=== PATIENT | female | born 1960 | race Caucasian/White ===

== ENCOUNTER 2019-08-24 21:31 | Emergency (ER) | payer MEDICARE, MEDICAID ==
[~2019-08-24] VITALS: Ht 162.6 cm; Wt 69.4 kg
[2019-08-24] MEDS ORDERED: DEXTROSE 50% 50 ML (IMS) SYR ONE (21:43)
--- NOTE | 2019-08-24 21:57 | ED General ---
General Chief Complaint: Respiratory Problems Stated Complaint: GLUCOSE PROBLEM Nursing Triage Note: PT TO ROOM FS05 WITH C/O SOB AND HYPOGLYCEMIA VIA [facility]. PT IS MR AND IS NOT ABLE TO ANSWER QUESTIONS REGARDING HEALTH HX AND S/S THAT BROUGHT HER HERE TODAY. EMS REPORTS BLOOD GLUCOSE OF 25 AT HOME AND 66 AT TIME OF ARRIVAL TO ED AFTER ORAL GLUCOSE ADMINISTERED. Nursing Sepsis Screen: No Definite Risk Source of Information: EMS, EMS Notes Reviewed, RN Notes Reviewed Exam Limitations: Other (Mentally impaired) History of Present Illness Date Seen by Provider: Aug 24, 2019 Time Seen by Provider: 21:45 Initial Comments See NN above. Pt called 911 herself as she was not feeling well. On arrival she was awake and alert, found to have blood sugar in 20's, given oral glucose and prior to arrival to ED her BS was in 60's. Patient unable to answer questions about her Hx. Her son was notified and states that her only medication is an ASA daily. She is not a known diabetic. Allergies and Home Medications Allergies Coded Allergies: No Known Drug Allergies (Unverified , 08/24/19) Patient Home Medication List Home Medication List Reviewed: Yes Review of Systems Review of Systems Constitutional: malaise Respiratory: short of breath All Other Systems Reviewed Negative Unless Noted: Yes Past Dsxheig-Onpncs-Oqxhpk Hx Past Med/Social Hx: Reviewed Nursing Past Med/Soc Hx Patient Social History Alcohol Use: Denies Use Recreational Drug Use: No Smoking Status: Never a Smoker 2nd Hand Smoke Exposure: No Recent Foreign Travel: No Contact w/Someone Who Travel: No Recent Infectious Disease Expo: No Recent Hopitalizations: No Physical Abuse: No Sexual Abuse: No Mistreated: No Fear: No Seasonal Allergies Seasonal Allergies: No Past Medical History Surgeries: No (PT UNABLE TO ANSWER QUESTION DUE TO MENTAL CONDITION.) Respiratory: Yes Asthma Cardiac: No (PT UNABLE TO ANSWER TO MENTAL CONDITION.) Neurological: No Genitourinary: No Gastrointestinal: No Musculoskeletal: No Endocrine: No HEENT: No Cancer: No Psychosocial: No Blood Disorders: No Physical Exam Vital Signs Vital Signs - First Documented 08/24/19 21:33 Temp 35.6 Pulse 98 Resp 22 B/P (MAP) 118/97 (104) O2 Delivery Room Air Capillary Refill : Less Than 3 Seconds Height, Weight, BMI Height: '" Weight: lbs. oz. kg; 26.00 BMI Method: General Appearance: No Apparent Distress, WD/WN HEENT: PERRL/EOMI, TMs Normal Neck: Normal Inspection, Non Tender, Supple Respiratory: Chest Non Tender, Lungs Clear Cardiovascular: Regular Rate, Rhythm Gastrointestinal: Non Tender, Soft Extremity: Normal Capillary Refill, Non Tender, No Calf Tenderness Neurologic/Psychiatric: Alert, No Motor/Sensory Deficits Skin: Normal Color, Warm/Dry Progress/Results/Core Measures Suspected Sepsis Recent Fever Within 48 Hours: No Infection Criteria Present: None New/Unexplained Altered Menta: No Sepsis Screen: No Definite Risk SIRS Temperature: Pulse: 98 Respiratory Rate: 22 Laboratory Tests 08/24/19 21:45: White Blood Count 16.8H Blood Pressure 118 /97 Mean: 104 Laboratory Tests 08/24/19 21:45: Creatinine 1.54H, Platelet Count 108L, Total Bilirubin 3.7H Results/Orders Lab Results Laboratory Tests Test 08/24/19 20:50 08/24/19 21:41 08/24/19 21:45 08/24/19 22:04 Range/Units Gastric Fluid Occult Blood NEGATIVE NEGATIVE Glucometer 26 *L 187 H 70-110 MG/DL White Blood Count 16.8 H 4.3-11.0 10^3/uL Red Blood Count 4.14 L 4.35-5.85 10^6/uL Hemoglobin 13.2 11.5-16.0 G/DL Hematocrit 44 35-52 % Mean Corpuscular Volume 107 H 80-99 FL Mean Corpuscular Hemoglobin 32 25-34 PG Mean Corpuscular Hemoglobin Concent 30 L 32-36 G/DL Red Cell Distribution Width 16.7 H 10.0-14.5 % Platelet Count 108 L 130-400 10^3/uL Mean Platelet Volume 10.9 H 7.4-10.4 FL Neutrophils (%) (Auto) 91 H 42-75 % Lymphocytes (%) (Auto) 4 L 12-44 % Monocytes (%) (Auto) 3 0-12 % Eosinophils (%) (Auto) 0 0-10 % Basophils (%) (Auto) 0 0-10 % Neutrophils # (Auto) 15.3 H 1.8-7.8 X 10^3 Lymphocytes # (Auto) 0.6 L 1.0-4.0 X 10^3 Monocytes # (Auto) 0.6 0.0-1.0 X 10^3 Eosinophils # (Auto) 0.0 0.0-0.3 10^3/uL Basophils # (Auto) 0.0 0.0-0.1 10^3/uL Neutrophils % (Manual) 85 % Lymphocytes % (Manual) 3 % Monocytes % (Manual) 3 % Band Neutrophils 4 % Reactive Lymphocytes 5 % Toxic Granulation 4+ Macrocytosis MODERATE Sodium Level 148 H 135-145 MMOL/L Potassium Level 2.7 L 3.6-5.0 MMOL/L Chloride Level 98 98-107 MMOL/L Carbon Dioxide Level 4 *L 21-32 MMOL/L Anion Gap 46 H 5-14 MMOL/L Blood Urea Nitrogen 20 H 7-18 MG/DL Creatinine 1.54 H 0.60-1.30 MG/DL Estimat Glomerular Filtration Rate 35 BUN/Creatinine Ratio 13 Glucose Level 29 *L 70-105 MG/DL Calcium Level 9.8 8.5-10.1 MG/DL Corrected Calcium 10.9 H 8.5-10.1 MG/DL Total Bilirubin 3.7 H 0.1-1.0 MG/DL Aspartate Amino Transf (AST/SGOT) 4558 H 5-34 U/L Alanine Aminotransferase (ALT/SGPT) 1198 H 0-55 U/L Alkaline Phosphatase 306 H 40-136 U/L Troponin I < 0.30 <0.30 NG/ML Total Protein 6.9 6.4-8.2 GM/DL Albumin 2.6 L 3.2-4.5 GM/DL Test 08/24/19 23:17 Range/Units Serum Alcohol < 10 <10 MG/DL My Orders Orders - CHRISSY COATES DO Cbc With Automated Diff (08/24/19 21:41) Comprehensive Metabolic Panel (08/24/19 21:41) Urinalysis (08/24/19 21:41) D50w (Emergency) Syringe (Dextrose 50% 5 (08/24/19 21:43) Manual Differential (08/24/19 21:45) Ondansetron Injection (Zofran Injectio (08/24/19 22:15) D5 Ns 1000 Ml Iv Solution (Dextrose 5%/0 (08/24/19 22:15) D50w (Emergency) Syringe (Dextrose 50% 5 (08/24/19 22:30) Troponin I Fs (08/24/19 22:39) Chest 1 View Ap/Pa Only (08/24/19 22:39) Ekg Tracing (08/24/19 22:39) Occult Blood,Gastric Fluid (08/24/19 22:45) Pantoprazole Injection (Protonix Injecti (08/24/19 23:00) Ns W/Kcl 20 Meq/L (Ns Iv W/Kcl 20 Meq/L) (08/24/19 23:00) Ns Iv 1000 Ml (Sodium Chloride 0.9%) (08/24/19 22:56) Potassium Cl 10meq/50ml Ivpb (Kcl 10 Meq (08/24/19 22:56) Alcohol (08/24/19 23:05) Lactic Acid Analyzer (08/25/19 00:05) Drug Screen Stat (Urine) (08/25/19 00:05) Ethylene Glycol (08/25/19 00:05) Fomepizole Injection (Antizol Injection) (08/25/19 00:30) Medications Given in ED Current Medications Medications Dose Ordered Sig/Whitney Route Start Time Stop Time Status Last Admin Dose Admin Dextrose 50 ml ONCE ONCE IV 08/24/19 22:30 08/24/19 22:31 DC 08/24/19 21:46 50 ML Ondansetron HCl 4 mg ONCE ONCE IVP 08/24/19 22:15 08/24/19 22:16 DC 08/24/19 22:12 4 MG Pantoprazole 40 mg ONCE ONCE IV 08/24/19 23:00 08/24/19 23:01 DC 08/24/19 23:07 40 MG Vital Signs/I&O 08/24/19 21:33 Temp 35.6 Pulse 98 Resp 22 B/P (MAP) 118/97 (104) O2 Delivery Room Air Capillary Refill : Less Than 3 Seconds Blood Pressure Mean: 104 ECG Initial ECG Impression Date: Aug 24, 2019 Initial ECG Impression Time: 22:45 Initial ECG Rhythm: Normal Sinus Initial ECG Intervals: Normal Initial ECG Comparisson: No Previous ECG Available Comment Patient not holding still and talking w each attempt for ECG recording. NO obvious ST change to suggest ACS Departure Communication (Admissions) Time/Spoke to Consulting Phy: 00:[address] Peace @ midnight, concerns of Metabolic acidosis and possible toxic ingestion and possible need of dialysis. Advised to consider x'sabas to a facility capable of dialysis if needed. Advised starting empiric Fomepizole (in case ingestion of ethylene glycol). given first dose in ED. Impression Primary Impression: Metabolic acidosis Additional Impressions: Abnormal liver function Hypoglycemia Disposition: 02 XFER SHT-TRM HOSP Condition: Stable Admissions Decision to Admit Reason: Admit from ER (General) Decision to Admit/Date: Aug 24, 2019 Time/Decision to Admit Time: 23:00 Transfer Transfer Reason: Exceeds level of care Time Spoke to Accepting Phy: 00:15 Transfer Progress Notes Spoke to Dr Herron @ 0015- accepts for transfer to [facility] Departure-Patient Inst. Referrals: NO,LOCAL PHYSICIAN (PCP/Family) Primary Care Physician CHRISSY COATES DO Aug 24, 2019 21:57
[2019-08-24 22:02] LABS: HEMATOCRIT 44 % (35-52); HEMOGLOBIN 13.2 G/DL (11.5-16.0); MEAN CORPUSCULAR HEMOGLOBIN 32 PG (25-34); MEAN CORPUSCULAR HGB CONC 30 G/DL (32-36); MEAN CORPUSCULAR VOLUME 107 FL (80-99); MEAN PLATELET VOLUME 10.9 FL (7.4-10.4); NEUTROPHILS % (AUTO) 91 % (42-75); PLATELET COUNT 108 10^3/uL (130-400); RED CELL DISTRIBUTION WIDTH 16.7 % (10.0-14.5); WHITE BLOOD COUNT 16.8 10^3/uL (4.3-11.0)
[2019-08-24 22:03] LABS: BASOPHILS % (AUTO) 0 % (0-10); EOSINOPHILS % (AUTO) 0 % (0-10); LYMPHOCYTES # (AUTO) 0.6 X 10^3 (1.0-4.0); LYMPHOCYTES % (AUTO) 4 % (12-44); MONOCYTES # (AUTO) 0.6 X 10^3 (0.0-1.0); MONOCYTES % (AUTO) 3 % (0-12); NEUTROPHILS # (AUTO) 15.3 X 10^3 (1.8-7.8)
[2019-08-24 22:15] LABS: BAND NEUTROPHILS 4 %; LYMPHOCYTES % (MANUAL) 3 %; MONOCYTES % (MANUAL) 3 %; NEUTROPHILS % (MANUAL) 85 %; REACTIVE LYMPHOCYTES 5 %; TOXIC GRANULATION/VACUOLAZATIO 4+
[2019-08-24] MEDS ORDERED: ONDANSETRON 4 MG/2 ML (SDV) Z0FRAN IVP ONE (22:15)
[2019-08-24] MEDS ORDERED: D5 NS 1000 ML IV SOLUTION 1,000 ML IV SCH (22:15)
[2019-08-24] MEDS ORDERED: DEXTROSE 50% 50 ML (IMS) SYR IV ONE (22:30)
[2019-08-24 22:47] LABS: POTASSIUM 2.7 MMOL/L (3.6-5.0)
[2019-08-24 22:48] LABS: BILIRUBIN,TOTAL 3.7 MG/DL (0.1-1.0); CALCIUM 9.8 MG/DL (8.5-10.1); CREATININE SERUM 1.54 MG/DL (0.60-1.30)
[2019-08-24 22:49] LABS: ALBUMIN 2.6 GM/DL (3.2-4.5); TOTAL PROTEIN 6.9 GM/DL (6.4-8.2)
[2019-08-24 22:56] LABS: OCCULT BLOOD,GASTRIC FLUID NEGATIVE (NEGATIVE)
[2019-08-24] MEDS ORDERED: NS IV 1000 ML 1,000 ML ONE (22:56)
[2019-08-24] MEDS ORDERED: POTASSIUM CL 10MEQ/50ML IVPB 100 ML IV ONE (22:56)
[2019-08-24] MEDS ORDERED: PANTOPRAZOLE 40 MG (PROTONIX) VIAL IV ONE (23:00)
[2019-08-24] MEDS ORDERED: NS W/KCL 20 MEQ/L 1,000 ML IV SCH (23:00)
[2019-08-25] MEDS ORDERED: NS (IVPB) 100 ML ONE (00:23)
[2019-08-25] MEDS ORDERED: FOMEPIZOLE INJECTION 1.5 GM in NS (IVPB) 100 ML IV ONE (00:30)
--- NOTE | 2019-08-25 00:45 | NUR ---
1000MG OF FOMEPIZOLE GIVEN PER PROVIDER.
[2019-08-25] MEDS ORDERED: ONDANSETRON 4 MG/2 ML (SDV) Z0FRAN ONE (01:27)
[2019-08-25 01:41] VITALS: BP 117/61
[2019-08-25] MEDS ORDERED: ONDANSETRON 4 MG/2 ML (SDV) Z0FRAN IVP ONE (01:45)
--- NOTE | 2019-08-25 07:10 | Diagnostic Imaging Report ---
EXAMINATION: Chest 1 view HISTORY: Pneumonia. COMPARISON: None available. FINDINGS: Patchy consolidative opacities are seen throughout the right hemithorax with relative sparing of the right apex. Patchy opacities are also seen scattered in the left lung. No large pleural effusion or pneumothorax. The cardiac silhouette is unremarkable. No acute osseous abnormalities. IMPRESSION: 1. Consolidative patchy opacities throughout the right hemithorax and scattered in the left lung, concerning for pneumonia. Dictated by: Dictated on workstation # [id number]
== END 2019-08-25 01:47 | disposition short-term general hospital (02) ==
LOC: ER FS 21:37
DX: E87.2 Acidosis (principal); R94.5 Abnormal results of liver function studies; E16.2 Hypoglycemia, unspecified; J45.909 Unspecified asthma, uncomplicated
CPT/HCPCS: 36415; 71045; 80053; 80320; 82271; 82962; 84484; 85007; 85027; 93005; 96361; 96365; 96375; 96376

== ENCOUNTER 2019-08-25 02:10 | Emergency (ER) | payer MEDICARE, MEDICAID ==
[2019-08-25] MEDS: NS IV 1000 ML 1,000 ML IV SCH ×2 (02:25→02:58)
[2019-08-25] MEDS ORDERED: NOREPINEPHRINE 4 MG/250 ML NS 250 ML IV ONE (02:26)
[2019-08-25] MEDS ORDERED: LORazepam INJ 2 MG/ML (ATIVAN) VIAL ONE (02:35)
[2019-08-25] MEDS ORDERED: NS IV 1000 ML 1,000 ML ONE (02:53)
[2019-08-25] MEDS ORDERED: LORazepam INJ 2 MG/ML (ATIVAN) VIAL IVP ONE (03:00)
[2019-08-25] MEDS ORDERED: NOREPINEPHRINE 4 MG/250 ML NS 250 ML IV SCH (03:00)
--- NOTE | 2019-08-25 03:09 | ED General ---
General Stated Complaint: RESP/HIGH BLOOD SUGAR Source of Information: Patient, EMS, Old Records Exam Limitations: Other (MR) History of Present Illness Date Seen by Provider: Aug 25, 2019 Time Seen by Provider: 02:08 Initial Comments Patient presents to ER by EMS who is en route to transfer from [facility] to [facility] for complaints of shortness of breath and hypotension. Patient does not give any meaningful history because of her baseline low functioning status. ER note that accompanied her said that she called 911 herself and when EMS arrived her blood sugar was low in the 50s. Oral glucose was administered and she was 60 on arrival to the ER. They noted her to be short of breath and vomiting copious amounts of bright red fluid that did not test positive on gastro-occult. She was also hypotensive and an unknown amount of fluid was given before EMS picked her up to transfer her to [place]. En route EMS noted her blood pressure went from 70/40-50/20. They stopped over at our ER for stabilization. Patient gives no meaningful history. She had no vomiting or nausea. She received Zofran 4 mg en route from EMS. Her initial blood pressure was 102/55. Shortly after that it dropped down to 68/20. Allergies and Home Medications Allergies Coded Allergies: No Known Drug Allergies (Unverified , 08/24/19) Patient Home Medication List Home Medication List Reviewed: Yes Review of Systems Review of Systems Constitutional: see HPI (patient gives no meaningful review of systems due to her mental status) Past Nqswfqe-Ehczod-Gvxiaa Hx Patient Social History Alcohol Use: Denies Use Recreational Drug Use: No Smoking Status: Never a Smoker 2nd Hand Smoke Exposure: No Recent Foreign Travel: No Contact w/Someone Who Travel: No Recent Hopitalizations: No Seasonal Allergies Seasonal Allergies: No Past Medical History Surgeries: No (PT UNABLE TO ANSWER QUESTION DUE TO MENTAL CONDITION.) Respiratory: Yes Asthma Cardiac: No (PT UNABLE TO ANSWER TO MENTAL CONDITION.) Neurological: No Genitourinary: No Gastrointestinal: No Musculoskeletal: No Endocrine: No HEENT: No Cancer: No Psychosocial: No Blood Disorders: No Physical Exam Vital Signs Vital Signs - First Documented 08/25/19 02:10 Temp 36.0 Pulse 99 Resp 24 B/P (MAP) 102/85 (91) Pulse Ox 93 O2 Delivery Room Air Capillary Refill : Height, Weight, BMI Height: '" Weight: lbs. oz. kg; 26.00 BMI Method: General Appearance: Anxious, Moderate Distress Eyes: Bilateral Eye Normal Inspection, Bilateral Eye PERRL, Bilateral Eye EOMI HEENT: PERRL/EOMI; No Pharynx Normal, No Moist Mucous Membranes Neck: Full Range of Motion, Normal Inspection Respiratory: Lungs Clear, Normal Breath Sounds, No Accessory Muscle Use, No Respiratory Distress Cardiovascular: Regular Rate, Rhythm, No Edema, Tachycardia (100) Gastrointestinal: Normal Bowel Sounds, Non Tender, Soft Neurologic/Psychiatric: Alert, Other (oriented to person only. At baseline.) Skin: Warm/Dry, Pallor Procedures/Interventions Lumen: triple (7 Hungarian 21 cm) Central Line Procedure: betadine prep (chlorhexidine prep), sterile drapes applied, sterile dressing applied Position: internal jugular (R) Anesthesia: Lidocaine Volume Anesthetic (ccs): 3 Complications: none Post Position: sutured, good blood return, position confirmed w/ CXR Patient had some anxiety with the drapes we gave her half a milligram of Ativan IV it helped. Using the usual sterile fashion we used the introducer needle applied to under ultrasound guidance to access the right internal jugular which was fairly plump and easily accessed. We then passed a guidewire easily without any ectopy. We then made a small bassam in the skin using the supplied 11 blade. We removed the needle and introduced the dilator. When the dilator was removed we then took the flushed central lumen of the triple-lumen catheter and placed it over the guidewire. We removed the guidewire and stitched in place at about 12 cm. The sterile dressing with mild gel was applied. The patient overall tolerated procedure well. Chest x-ray was obtained demonstrating good position. Progress/Results/Core Measures Suspected Sepsis SIRS Temperature: Pulse: Respiratory Rate: Blood Pressure / Mean: Results/Orders Lab Results Laboratory Tests Test 08/25/19 02:20 Range/Units Glucometer 207 H 70-110 MG/DL My Orders Orders - DUSTY MONTES Norepinephrine 4 Mg/250 Ml Ns (Norepinep (08/25/19 02:26) Lorazepam Injection (Ativan Injection) (08/25/19 02:35) Chest 1 View, Ap/Pa Only (08/25/19 02:55) Norepinephrine 4 Mg/250 Ml Ns (Norepinep (08/25/19 03:00) Lorazepam Injection (Ativan Injection) (08/25/19 03:00) Ed Iv/Invasive Line Start (08/25/19 02:55) Ns Iv 1000 Ml (Sodium Chloride 0.9%) (08/25/19 02:55) Ns Iv 1000 Ml (Sodium Chloride 0.9%) (08/25/19 02:53) Medications Given in ED Current Medications Medications Dose Ordered Sig/Whitney Route Start Time Stop Time Status Last Admin Dose Admin Lorazepam 0.5 mg ONCE ONCE IVP 08/25/19 03:00 08/25/19 03:01 DC 08/25/19 02:40 0.5 MG Vital Signs/I&O 08/25/19 08/25/19 02:10 03:56 Temp 36.0 36.0 Pulse 99 99 Resp 24 24 B/P (MAP) 102/85 (91) 102/85 (91) Pulse Ox 93 93 O2 Delivery Room Air Capillary Refill : ECG Initial ECG Impression Date: Aug 25, 2019 Initial ECG Impression Time: 02:29 Initial ECG Rate: 104 Initial ECG Rhythm: S.Tach Initial ECG Intervals: QT (479) Initial ECG Impression: Normal Comment Sinus tachycardia without clinically relevant ST elevation or depression. Diagnostic Imaging Diagonstic Imaging: Xray Plain Films/CT/US/NM/MRI: chest (1v) Comments Patchy infiltrates seen on the right side. Central catheter overlying the shadow of the right superior vena cava with the distal tip terminating in the SVC just superior to the right atria. No evidence of pneumothorax. Reviewed: Reviewed by Me Critical Care Note Critical Care Start Time: 02:05 Stop Time: 03:00 Total Time (minutes) 55m Progress While her initial blood pressure was good we worked on getting them a second IV and started a liter of fluids, warm saline. We found a left EJ and put an 18- gauge in it. Fluids flowed freely. Subsequent blood pressures were all low so we elected to start Levophed and give them a central line. We put an IJ on the right side easily on first attempt and the patient's blood pressure is very labile going back up around the 100-110 systolic so we just sent the Levophed with them and a second liter of fluids as the first liter had pretty much gone in. We called all the local helicopters and all of them declined due to weather. The patient was quite anxious complaining she had a hard time breathing while under the drape so we gave her half a milligram of Ativan. We'll put her on 2 L as her oxygen sats were 91-92% on arrival and her oxygen sats stayed in the mid 90s on 2 L. After the drape was removed the patient no longer had subjective complaints of shortness of air. Patient's blood pressure was back up around 107 systolic and a map of 77 mmHg. Since we could not evacuate her by air the EMS crew brought her agreed to take her on the rest the way to [place]. This point she received a liter of fluids had another liter started and have Levophed to go with them. The patient was as stable as we could make her for transport at this time. Departure Impression Primary Impression: Hypoglycemia Additional Impression: Hypotension Qualified Codes: I95.9 - Hypotension, unspecified Disposition: 02 XFER SHT-TRM HOSP Condition: Critical Transfer Transfer Reason: Exceeds level of care Transfer Progress Notes See prior ER note for details but this transfer was already set up. We stabilized the patient and allowed them to continue the planned transfer. Transfer Facility: [place], [place] Method of Transfer: EMS ([facility]) Departure-Patient Inst. Referrals: NO,LOCAL PHYSICIAN (PCP/Family) Primary Care Physician DUSTY MONTES Aug 25, 2019 03:09
--- NOTE | 2019-08-25 03:15 | NUR ---
ARRIVES VIA EMS MID TRANSPORT TO [place] IN [place]. 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 UPON ARRIVAL PATIENT IS MOVED FROM COT TO BED AND INITIAL BLOOD PRESSUE IS FOUND TO BE 102/85. 1 LITER OF SALINE INFUSING AT THIS TIME IN RAC. 0220 ONE UNSUCCESSFUL ATTEMPT MADE TO ESTABLISH ADDITIONAL IV SITE, 0225 MEDIC EMELIA PLACED 18 GUAGE IN LEFT E.J. @ 0225 1 LITER OF NS ADDED TO LINE. [address] AND ORDER TO EMS TO START NOREPINEPHERINE IF NEEDED WHILE ENROUTE TO [place]. ATTEMPTS MADE TO SECURE HELICOPTER 0238 [facility] DECLINED FOR WEATHER 0242 [facility] DECLINED FOR WEATHER 0249 [facility] DECLINED FOR WEATHER 0315 PATIENT CONTINUES TRANSPORT WITH [facility] TO [place]
[2019-08-25 03:56] VITALS: BP 102/85
--- NOTE | 2019-08-25 06:49 | Diagnostic Imaging Report ---
EXAMINATION: Chest 1 view HISTORY: Central line placement. COMPARISON: Chest radiograph on 08/24/2019 FINDINGS: There has been interval placement of a right internal jugular central line with the tip overlying the low SVC. No pneumothorax. Patchy consolidative opacities are again seen throughout the majority of the right hemithorax and scattered in the left lung. No large pleural effusion. Stable cardiac silhouette. Stable osseous structures. IMPRESSION: 1. Interval placement of a right internal jugular central line with the tip overlying the low SVC. No pneumothorax. 2. Stable patchy consolidative opacities throughout the right lung and scattered in the left hemithorax, concerning for pneumonia. Dictated by: Dictated on workstation # [id number]
== END 2019-08-25 03:15 | disposition short-term general hospital (02) ==
LOC: EDUNIT# 02:14 → ER 02:15
DX: E16.2 Hypoglycemia, unspecified (principal); I95.9 Hypotension, unspecified; J45.909 Unspecified asthma, uncomplicated
CPT/HCPCS: 36556; 71045; 82962; 93005; 96361; 96374